=== PATIENT | female | born 2005 | race Caucasian/White ===

== ENCOUNTER 2025-01-19 09:09 | Emergency (ER) | payer OTHER, SELFPAY ==
--- NOTE | 2025-01-19 09:11 | ED.ABDPAIN ---
HPI - Abdominal Pain General Chief Complaint: Abdominal Pain Stated Complaint: Abdominal Pain Source: patient and RN notes reviewed Mode of arrival: ambulatory Limitations: no limitations History of Present Illness HPI narrative: Patient is a 19-year-old female who presents to the [facility] with complaints of right lower quadrant abdominal pain starting yesterday. Patient states that the pain started after she drank a frappacino from [employer]. However, the pain worsened today. She reports tenderness to the area. Notable tenderness upon palpation with rebound tenderness on exam. Patient reports accompanying nausea, but denies vomiting or diarrhea. Denies known fevers. Related Data Home Medications ?Medication ?Instructions ?Recorded ?Confirmed ?Last Taken ?Type norgestimate-ethinyl estradiol tablet 01/19/25 Unknown History 0.18mg/0.215mg/0.25mg-0.035mg(28)tablet spironolactone 50 mg tablet mg 01/19/25 Unknown History Allergies Allergy/AdvReac Type Severity Reaction Status Date / Time No Known Allergies Allergy Verified 01/19/25 09:25 Review of Systems Review of Systems: CONSTITUTIONAL: Denies fever, chills, or sweats. EYES: Denies visual changes, redness, or discharge. ENT: Denies otalgia and sore throat CARDIOVASCULAR: Denies chest pain, palpitations, or edema. RESPIRATORY: Denies cough or dyspnea. GASTROINTESTINAL: Reports abdominal pain and nausea, but denies vomiting or diarrhea. GENITOURINARY: Denies dysuria or hematuria. SKIN: Denies rash or itching. MUSCULOSKELETAL: Denies back pain, joint pain, or myalgia. NEUROLOGIC: Denies headache, numbness, or weakness. Pertinent positives per HPI. PMFSH Comments At the time of my signature, I reviewed and agree with the nursing past medical, surgical, social, and family history. There is no relevant family history pertinent to the patient complaint. Exam Narrative: GENERAL: This is a well-nourished, well-developed patient, in no apparent distress. HEAD: normocephalic, atraumatic. EYES: PERRL. Sclera clear/white. Vision is grossly intact. EARS: External ears normal, auditory canals clear and without drainage, TMs normal without perforation. Hearing grossly intact. NOSE: External nose normal with no obvious nasal discharge, nares without redness, no rhinorrhea. THROAT: Mucous membranes moist, posterior pharynx clear. NECK: Neck supple, non-tender without lymphadenopathy, masses or thyromegaly. CARDIOVASCULAR: Regular rate and rhythm without murmurs, gallops, or rubs. RESPIRATORY: Clear to auscultation. Breath sounds equal bilaterally. No wheezes, rales, or rhonchi. GASTROINTESTINAL: RLQ abdominal tenderness, rebound tenderness. Guarding. SKIN: warm, intact with no suspicious lesions or rash, good texture and turgor. NEURO: awake, alert, and oriented to person, place and time. There were no obvious focal neurologic abnormalities. Course Course Level of Care: Express Care Visit Vital Signs Vital signs: Vital Signs Temperature 97.5 F L 01/19/25 09:23 Pulse Rate 113 H 01/19/25 09:23 Respiratory Rate 16 01/19/25 09:23 Blood Pressure 124/85 01/19/25 09:23 Pulse Oximetry 100 01/19/25 09:23 Temperature 97.5 F L 01/19/25 09:23 Pulse Rate 113 H 01/19/25 09:23 Respiratory Rate 16 01/19/25 09:23 Blood Pressure 124/85 01/19/25 09:23 Pulse Oximetry 100 01/19/25 09:23 Reviewed Transfer Transfered to: [facility] Transportation: Other (private vehicle) Transfer rationale: Right lower quadrant abdominal pain with rebound tenderness Accepting physician: NELDA Gipson MDM - Abdominal Pain MDM Narrative Medical decision making narrative: Patient was directed to [facility] ED for further evaluation of her RLQ abdominal pain. On exam, there was rebound tenderness. Report given to NELDA at [facility]. NELDA Gipson accepted patient for transfer. Friend will drive patient via private vehicle to [facility] ED. Differential Diagnosis Differential diagnosis: Likely abdominal pain, acute appendicitis, calculus of kidney, constipation, gastroenteritis and other ( cholecystitis) Critical Care Time Critical Care Time Critical Care Time: No Discharge Plan Discharge Clinical Impression: Right lower quadrant abdominal pain Patient Disposition: Acute Care Hospital Condition: Stable Additional Instructions: Go directly to [facility] ED for evaluation. Patient Language: French Prescriptions: No Action norgestimate-ethinyl estradiol 0.18/0.215/0.25 mg-0.035mg (28) tablet spironolactone 50 mg tablet Follow-up/Referrals: UNKNOWN,DOCTOR [Non-Staff] Time of Disposition: :29
[2025-01-19 09:23] VITALS: BP 124/85; PULSE 113; RESP 16; TEMP 36.4; O2SAT 100
== END 2025-01-19 09:30 | disposition short-term general hospital (02) ==
PROVIDERS: Emergency Provider Nurse Practitioner
DX: R10.31 Right lower quadrant pain (principal)
CPT/HCPCS: 99212; G0463

== ENCOUNTER 2025-01-19 09:46 | Emergency (ER) | payer OTHER, SELFPAY ==
--- NOTE | ~2025-01-19 | CT_ITS ---
EXAMINATION: CT abdomen pelvis w con DATE: 01/19/2025 11:36 INDICATION: Right lower quadrant abdominal pain TECHNIQUE: Computed tomography (CT) of the abdomen and pelvis was performed with 100 mL Omnipaque-350 intravenous contrast. Automated exposure control and iterative reconstruction technique were employed. The dose-length product was 283.79 mGy-cm. COMPARISON: None FINDINGS: Lung bases are clear. Heart size is normal. No pericardial or pleural effusion. Liver, gallbladder, spleen, pancreas, bilateral adrenal glands and kidneys are normal. Bladder, anteverted uterus and bilateral adnexa are normal. Bowels including the appendix are normal. No free intraperitoneal gas or fluid. No pathologically enlarged abdominal or pelvic lymphadenopathy. Bones are unremarkable. IMPRESSION: 1. No acute intra-abdominal/pelvic process. Specifically the gallbladder and appendix are normal. Reviewed, dictated and finalized at location A. IMPRESSION: 1. No acute intra-abdominal/pelvic process. Specifically the gallbladder and ap pendix are normal.
--- NOTE | ~2025-01-19 | US_ITS ---
EXAMINATION: US pelvic complete INDICATION: Right lower quadrant pain Comparison:No prior studies for comparison. TECHNIQUE: Multiple transabdominal and endovaginal sonographic images of the pelvis performed. FINDINGS: The uterus measures 7.3 x 2 x 4.4 cm. The endometrial complex measures 3 mm. The right ovary measures 3.1 x 2.1 x 3.1 cm and the left ovary measures 3 x 1.6 x 1.8 cm. There are small follicles in each ovary. Normal doppler signal in both ovaries. There is no free fluid in the pelvis. There are no abnormal masses seen on either side. Incidental note is made of a hypoechoic mass midline lower abdomen wall measuring 7.9 x 3.2 x 1.3 cm. There is parallel orientation, internal vascularity and no significant posterior features. IMPRESSION: 1. Unremarkable pelvic ultrasound. 2: Oval hypoechoic soft tissue mass midline lower abdomen measuring 7.9 x 3.2 x 1.3 cm. Differential diagnosis includes desmoid type fibromatosis, abdominal wall endometriosis, chronic hematoma, benign lipoma and less likely malignant masses. Consider correlation with MRI pelvis with contrast to cover the area of abnormality. Consider image guided core biopsy. Reviewed, dictated and finalized at location O. IMPRESSION: 1. Unremarkable pelvic ultrasound. 2: Oval hypoechoic soft tissue mass midline lower abdomen measuring 7.9 x 3.2 x 1.3 cm. Differential diagnosis includes desmoid type fibromatosis, abdominal w all endometriosis, chronic hematoma, benign lipoma and less likely malignant ma sses. Consider correlation with MRI pelvis with contrast to cover the area of a bnormality. Consider image guided core biopsy.
[2025-01-19 10:01] VITALS: BP 112/70; PULSE 86; RESP 16; TEMP 36.6; O2SAT 100
[2025-01-19 10:29] LABS: Hematocrit 44.2 % (37.0-47.0); Hemoglobin 15.0 g/dL (12.0-15.0); Immature Granulocyte Percent A 0.3 % (0-0.5); Lymphocytes Absolute Auto 1.63 K/mm3 (0.9-3.2); Mean Corpuscular HGB Conc 33.9 g/dl (32-36); Mean Corpuscular Hemoglobin 29.8 pg (26-34); Mean Corpuscular Volume 87.7 fl (80-100); Nucleated Red Blood Cells Absolute Auto 0.000 K/mm3 (0.0-0.012); Nucleated Red Blood Cells Perc 0.0 % (0.0-0.2); Platelet Count Result 314 k/mm3 (150-375); Red Blood Count 5.04 M/mm3 (4.2-5.4); White Blood Count 10.7 K/mm3 (4.5-10.0)
[2025-01-19 10:32] LABS: Add Urine Microscopic? YES; Appearance Urine Clear (Clear); Glucose Urine UA Negative (Negative); Leukocyte Esterase Ur Trace LEU/UL (Negative); Nitrate Urine Negative (Negative); Non Pathogenic Casts 0-2; Specific Grav Ur 1.026 (1.001-1.035)
[2025-01-19 10:46] LABS: Alanine Aminotransferase 22 U/L (6-35); Albumin Level 4.9 g/dL (3.5-5.1); Alkaline Phosphatase 61 U/L (38-126); Anion Gap 12 mmol/L (4-12); Aspartate Amino Transferase 44 U/L (14-36); Bilirubin,Total 1.6 mg/dL (0.2-1.3); Blood Urea Nitrogen 10 mg/dL (7-17); Calcium 9.9 mg/dL (8.4-10.2); Carbon Dioxide 24 mmol/L (22-30); Chloride 103 mmol/L (98-107); Estimated CRCL calculation 69 ml/min; Estimated Glomerular Filt Rate > 60; Glucose 107 mg/dL (65-110); Lipase 60 U/L (23-300); Potassium 4.2 mmol/L (3.4-5.0); Sodium 139 mmol/L (137-145); Total Protein 8.8 g/dL (6.3-8.2)
[2025-01-19 10:51] LABS: BEDSIDEPREGUCG Negative (Negative)
--- OUTSIDE RECORDS SUMMARY | 2025-01-19 10:57 | XMS_ITS | Clinical Summary ---
Author Organization [facility] [address] Address [address] [place] [address] Care Team Providers Care Medical Translator Name Role Phone Farhan Bunn MD Primary Care Provider [phone] Marcelo Johnston MD Unavailable [phone] Allergies No known active allergies Medications albuterol HFA (PROVENTIL HFA,VENTOLIN HFA,PROAIR HFA) 90 mcg/actuation inhaler Inhale 2 puffs every 6 (six) hours as needed for wheezing 1 each 6 02/13/2021 Active norgestimate-et hinyl estradioL (ORTHO TRI-CYCLEN) 0.18/0.215/0.25 mg-35 mcg (28) per tablet Take 1 tablet by mouth daily 09/25/2023 Active spironolactone (ALDACTONE) 100 mg tablet Take 1 tablet (100 mg total) by mouth daily Active Active Problems Problem Noted Date Diagnosed Date Chronic tonsillitis 11/12/2023 Assessment & Plan (05/16/2024 11:04 AM SWING MANAGER): She has a normal exam following her tonsillectomy. Uvula swelling has resolved. I told her that the pain will continue to improved where she should not have any. She can resume normal activities and diet. Follow up with me as needed. She had no questions. Assessment & Plan (11/12/2023 1:28 PM CDT): She complains of chronic problems with tonsil stones as well as low-grade sore throats. I think she would benefit from a tonsillectomy. I told her it has really about the only thing that will reliably get rid tonsil stones. I discussed the risks of tonsillectomy and adenoidectomy with the patient. There is risk of bleeding which can occur in approximately 2-3% of patients during the 1st 2 weeks of recovery. Some risk of permanent loss of taste sensation. Risk of anesthesia and airway complications also. She indicates that she probably would like to do this when she has on her [place] break from school. She had no questions. She is going to talk with her parents about this. They were encouraged to call if they have any questions. They call to schedule whenever they already. Mild intermittent asthma without complication Immunizations Immunization Administration Dates Next Due Influenza, Quadrivalent, Spl it, Intramuscular 12/31/2018 Influenza, Quadrivalent, Spl it, Preservative Free, Intramuscular 03/05/2020,12/31/2018,01/24/2018 Influenza, Trivalent, IM (MDV) 03/02/2021,2016 Influenza, Trivalent, Preser vative Free, Intramuscular 01/27/2016 Influenza, Unspecified 03/05/2020 Surgical History Surgery Date Site/Laterality Comments ORAL SURGERY 11/10/2018 - 12/10/2018 WISDOM TOOTH EXTRACTION 07/12/2023 - 08/11/2023 TONSILLECTOMY 04/20/2024 Bilateral BILATERAL TONSILLECTOMY Medical History Medical History Date Comments Asthma Tonsillitis Tonsil stone Family History Medical History Relation Name Comments Coronary artery disease Father No Known Problems Mother No Known Problems Sister Relation Name Status Comments Father Alive Mother Alive Sister Alive Social History Tobacco Use Types Packs/Day Years Used Date Smoking Tobacco: Never Smokeless Tobacco: Never Tobacco Cessation:Counseling Given: Not Answered Alcohol Use Standard Drinks/Week Comments Never 0 (1 standard drink = 0.6 oz pur e alcohol) AUDIT-C Answer Date Recorded Q1: How often do you have a drink containing alc ohol? Monthly or less 04/20/2024 Q2: How many drinks containi ng alcohol do you have on a typical day when you are drinking? 1 or 2 04/20/2024 Q3: How often do you have si x or more drinks on one occasion? Never 04/20/2024 PHQ-2 Answer Date Recorded PHQ-2 Total Score (If total score is 3 or more points, staff should administer the PHQ-9) 0 10/18/2021 Personal Safety Answer Date Recorded Have you ever been in or are you currently in a harmful physical or emotional relationship or is someone making you feel afraid or unsafe? Denies 04/20/2024 Comments No Sex and Gender Information Value Date Recorded Sex Assigned at Not on file Legal Sex Female 7:45 PM SWING MANAGER Gender Identity Not on file Sexual Orientation Not on file Obstetrics History Last Filed Vital Signs Vital Sign Reading Time Taken Comments Blood Pressure 110/69 04/20/2024 5:00 PM SWING MANAGER Pulse 87 04/20/2024 5:00 PM SWING MANAGER Temperature 36.7 C (98.1 F) 04/20/2024 4:25 PM SWING MANAGER Respiratory Rate 18 05/14/2024 9:37 AM SWING MANAGER Oxygen Saturation 97% 04/20/2024 5:00 PM SWING MANAGER Inhaled Oxygen Concentration - - Weight 65.8 kg (145 lb) 05/14/2024 9:37 AM SWING MANAGER Height 167.6 cm (5' 6) 05/14/2024 9:37 AM SWING MANAGER Body Mass Index 23.4 05/14/2024 9:37 AM SWING MANAGER Plan of Treatment Health Maintenance Due Date Last Done Comments Hepatitis C Screening 2004 Pneumococcal vaccine <65 (1 of 1 - PPSV23, PCV20, or PCV21) 2010 01/04/2006, 06/22/2005, 04/27/2005, Additional history exists DTaP/Tdap/Td Vaccine (6 - Tdap) 12/22/2015 12/22/2008, 08/24/2006, 06/28/2006, Additional history exists HPV Vaccines (3 - 2-dose series) 07/05/2018 02/08/20 18, 01/02/2018 Meningococcal B Vaccine (1 o f 2 - Standard) 2020 Depression Screening 10/18/2022 10/18/2021, 11/19/19 20 Regular Well Visit/Exam 18-64 2022 Influenza Vaccine (#1) 2025 3, 03/02/2021, 03/05/2020, Additional history exists Hepatitis B Screening Completed 12/27/2006 , 06/22/2005, 04/27/2005, Additional history exists Varicella Vaccines Completed 12/22/2008, 04/12/2006 Meningococcal Vaccine Completed 11/30/2022, [address] [place] [id number] [facility] [id number] [facility] [id number] Care Teams Medical Translator Relationship Specialty Start Date End Date Farhan Bunn MD PCP - General Family Medicine 10/10/23 Marcelo Johnston MD [address] [place] [address] Consulting Physician Otolaryngology 04/20/24
[2025-01-19] MEDS: ONDANSETRON INJ 4 MG/2 ML VIAL IV PUSH (11:15)
[2025-01-19] MEDS: ACETAMINOPHEN 500 MG TABLET 1000 MG PO (11:16)
[2025-01-19] MEDS: SODIUM CHLORIDE 0.9% IV 1,000 ML 999 ML IV CONT (11:18)
--- NOTE | 2025-01-19 11:39 | ED_ITS ---
HPI - Abdominal Pain General Chief Complaint: Abdominal Pain Stated Complaint: abd pain Time Seen by Provider: 01/19/25 10:11 Source: patient Mode of arrival: ambulatory Limitations: no limitations History of Present Illness HPI narrative: Patient is an 17 year report right lower quadrant abdominal pain. Patient reports having pain throughout her right lower abdomen since around 4:00 p.m. yesterday. Pain has continued to worsen since then. Has not taken anything for pain. Pain worse with movement. Reports nausea, denies vomiting, fevers, diarrhea, constipation, urinary complaints. Denies history of previous ovarian cyst. Sent here from urgent care today. Related Data Home Medications ?Medication ?Instructions ?Recorded ?Confirmed ?Last Taken ?Type norgestimate-ethinyl estradiol tablet 01/19/25 Unknow n History 0.18mg/0.215mg/0.25mg-0.035mg(28)tablet spironolactone 50 mg tablet mg 01/19/25 Unknown Histo ry Allergies Allergy/AdvReac Type Severity Reaction Status Date / Time No Known Allergies Allergy Verified 01/19/25 09:25 Review of Systems 2 Review of Systems: All systems reviewed & are unremarkable except as noted in HPI. All systems reviewed & are unremarkable except as noted in HPI and below Exam 2 Narrative: GENERAL: Well appearing, well-nourished, non-toxic, in no acute distress. HEAD: Normocephalic, atraumatic. RESPIRATORY: Airway patent, respirations nonlabored. Clear to auscultation bilaterally, no rales, rhonchi, wheezing. CARDIOVASCULAR: Regular rate and rhythm without murmurs, rubs, or gallops. ABDOMINAL: Soft, mild diffuse tenderness throughout abdomen, worst in right lower quadrant, nondistended. Normoactive BS. MUSCULOSKELETAL: Moves all extremities. No gross deformities. SKIN: Warm, dry, normal color. NEURO: A&O X3. Speech clear. Cranial nerves II-XII grossly intact. Steady gait. No ataxic movements. PSYCHIATRIC: Appropriate mood and affect. Normal interaction. Course Vital Signs Vital signs: Vital Signs Temperature 97.8 F 01/19/25 10:01 Pulse Rate 86 01/19/25 10:01 Respiratory Rate 16 01/19/25 10:01 Blood Pressure 112/70 01/19/25 10:01 Pulse Oximetry 100 01/19/25 10:01 Oxygen Delivery Room Air 01/19/25 10:01 Temperature 97.8 F 01/19/25 10:01 Pulse Rate 86 01/19/25 10:01 Respiratory Rate 16 01/19/25 10:01 Blood Pressure 112/70 01/19/25 10:01 Pulse Oximetry 100 01/19/25 10:01 Oxygen Delivery Room Air 01/19/25 10:01 MDM - Abdominal Pain MDM Narrative Medical decision making narrative: Patient presented to ED with right lower quadrant abdominal pain that began yesterday afternoon. Sent from urgent care. Vital signs are stable upon arrival. Patient is afebrile here. Cbc with blood cell count of 10.7. CMP fairly unremarkable. Creatinine 1.08. No records to compare to. Given fluids. Total bilirubin mildly elevated to 1.6. Otherwise normal LFTs and lipase. Patient without significant focal right upper quadrant tenderness on exam. UA without signs of infection. Urine is negative. CT scan of abdomen/pelvis was obtained and unremarkable. Specifically, the appendix and gallbladder were normal. Pelvic ultrasound was obtained and without abnormality to adnexal regions. No evidence of torsion. Does show soft tissue abnormality/mass midline lower abdomen, wide differential. Recommend MRI/possible bx. Discussed these findings extensively with patient and family. Advised close follow-up with PCP and possible OBGYN for further eval and workup of this. Overall workup is otherwise reassuring. No specific etiology to pain. Patient is feeling improved after Tylenol. Discussed possibility constipation, gas pains. Feel she is safe for discharge home at this time. Advised to monitor symptoms closely, strict return precautions. She is in agreement with plan, feels comfortable going home. Discharged in stable condition. Medical Records Attestation: I reviewed the patient's medical records. Lab Data Attestation: I reviewed the patient's lab results. 01/19/25 10:21 01/19/25 10:21 Labs: Lab Results 01/19/25 01/19/25 Range/Units 10:21 10:49 WBC 10.7 H (4.5-10.0) K/mm3 RBC 5.04 (4.2-5.4) M/mm3 Hgb 15.0 (12.0-15.0) g/dL Hct 44.2 (37.0-47.0) % MCV 87.7 (80-100) fl MCH 29.8 (26-34) pg MCHC 33.9 (32-36) g/dl RDW 12.4 (11.5-14.5) % Plt Count 314 (150-375) k/mm3 MPV 10.2 (7.4-10.4) fl Immature Gran % (Auto) 0.3 (0-0.5) % Neut % (Auto) 78.0 H (45.5-73.1) % Lymph % (Auto) 15.2 L (18.3-44.2) % [place] % (Auto) 5.4 (2.6-8.5) % Eos % (Auto) 0.7 (0-4.4) % Baso % (Auto) 0.4 (0.2-1.2) % Lymph # (Auto) 1.63 (0.9-3.2) K/mm3 [place] # (Auto) 0.6 (0.1-0.6) K/mm3 Eos # (Auto) 0.1 (0-0.3) K/mm3 Baso # (Auto) 0.0 (0.0-0.1) K/mm3 Abs Immat Gran (auto) 0.03 (0.00-0.031) K/mm3 Absolute Neuts (auto) 8.4 H (1.3-6.7) K/mm3 Absolute Nucleated RBC 0.000 (0.0-0.012) K/mm3 Nucleated RBC % 0.0 (0.0-0.2) % Sodium 139 (137-145) mmol/L Potassium 4.2 (3.4-5.0) mmol/L Chloride 103 (98-107) mmol/L Carbon Dioxide 24 (22-30) mmol/L Anion Gap 12 (4-12) mmol/L BUN 10 (7-17) mg/dL Creatinine 1.08 H (0.7-1.0) mg/dL Estim Creat Clear Calc 69 ml/min Estimated GFR > 60 (59 - ) Glucose 107 (65-110) mg/dL Calcium 9.9 (8.4-10.2) mg/dL Total Bilirubin 1.6 H (0.2-1.3) mg/dL AST 44 H (14-36) U/L ALT 22 (6-35) U/L Alkaline Phosphatase 61 (38-126) U/L Total Protein 8.8 H (6.3-8.2) g/dL Albumin 4.9 (3.5-5.1) g/dL Lipase 60 (23-300) U/L Urine Color Yellow (Yellow) Urine Appearance Clear (Clear) Urine pH 5.5 (5.0-9.0) Ur Specific [place] 1.026 (1.001-1.035) Urine Protein Negative (Negative) mg/dL Urine Glucose (UA) Negative (Negative) mg/dL Urine Ketones Trace H (Negative) mg/dL Ur Blood (Man) Negative (Negative) Urine Nitrate Negative (Negative) Urine Bilirubin Negative (Negative) Urine Urobilinogen 0.2 (<2.0) mg/dL Leukocyte Esterase Rfl Trace H (Negative) DHRUV/UL Urine RBC 0-2 (0-2) /hpf Urine WBC 0-5 (0-3) /hpf Ur Squamous Epith Cells None seen (Few) /hpf Urine Bacteria None seen /hpf Urine Casts 0-2 POC Urine HCG, Qual Negative (Negative) Imaging Data Attestation: I personally reviewed and interpreted this imaging study as follows: Radiologist's impression: ITS Impressions Abdomen/Pelvis CT 01/19/25 12:03 IMPRESSION: 1. No acute intra-abdominal/pelvic process. Specifically the gallbladder and appendix are normal. Pelvis Ultrasound 01/19/25 13:24 IMPRESSION: 1. Unremarkable pelvic ultrasound. 2: Oval hypoechoic soft tissue mass midline lower abdomen measuring 7.9 x 3.2 x 1.3 cm. Differential diagnosis includes desmoid type fibromatosis, abdominal wall endometriosis, chronic hematoma, benign lipoma and less likely malignant masses. Consider correlation with MRI pelvis with contrast to cover the area of abnormality. Consider image guided core biopsy. Discharge Plan Discharge Clinical Impression: Right lower quadrant abdominal pain, Soft tissue lesion of pelvic region Patient Disposition: Home Condition: Stable Instructions: Antibiotic Form, Abdominal Pain (ED) Additional Instructions: Follow-up with your primary care doctor for further evaluation and further outpatient imaging of soft tissue abnormality in lower abdomen. Continue Tylenol/ibuprofen, heating pad as needed for pain. Recommended rest, stay well hydrated. Return to the ED if you experience worsening or severe pain, unable to keep down food or drink, fevers, abnormal vaginal bleeding, difficulty urinating, or any other symptoms of concern. Patient Language: Portuguese Prescriptions: No Action norgestimate-ethinyl estradiol 0.18/0.215/0.25 mg-0.035mg (28) tablet spironolactone 50 mg tablet Follow-up/Referrals: Xiomy Munoz MD [Physician, RESOURCES REPRESENTATIVE] Referral Note: OBGYN UNKNOWN,DOCTOR [Primary Care Provider] Time of Disposition: 14:43
--- OUTSIDE RECORDS SUMMARY | 2025-01-19 11:52 | XMS_ITS | Clinical Summary ---
Author Organization [facility] [address] Address [address] [place] [address] Care Team Providers Care Senior Bi Developer Name Role Phone Farhan Bunn MD Primary Care Provider [phone] Marcelo Johnston MD Unavailable [phone] Allergies No known active allergies Medications albuterol [...] 11/12/2023 Assessment & Plan (05/16/2024 11:04 AM ROOF FIXER): She has a normal exam following her [...] on file Legal Sex Female 7:45 PM ROOF FIXER Gender Identity Not on file Sexual Orientation Not on file Obstetrics History Last Filed Vital Signs Vital Sign Reading Time Taken Comments Blood Pressure 110/69 04/20/2024 5:00 PM ROOF FIXER Pulse 87 04/20/2024 5:00 PM ROOF FIXER Temperature 36.7 C (98.1 F) 04/20/2024 4:25 PM ROOF FIXER Respiratory Rate 18 05/14/2024 9:37 AM ROOF FIXER Oxygen Saturation 97% 04/20/2024 5:00 PM ROOF FIXER Inhaled Oxygen Concentration - - Weight 65.8 kg (145 lb) 05/14/2024 9:37 AM ROOF FIXER Height 167.6 cm (5' 6) 05/14/2024 9:37 AM ROOF FIXER Body Mass Index 23.4 05/14/2024 9:37 AM ROOF FIXER Plan of Treatment Health Maintenance Due Date [...] 04/12/2006 Meningococcal Vaccine Completed 11/30/2022, [address] [place] [id number] [facility] [id number] [facility] [id number] Care Teams Senior Bi Developer Relationship Specialty Start Date End Date Farhan Bunn MD PCP - General Family Medicine 10/10/23 Marcelo Johnston MD [address] [place] [address] Consulting Physician Otolaryngology 04/20/24
== END 2025-01-19 15:08 | disposition home or self-care (01) ==
PROVIDERS: Emergency Medicine; Emergency Provider Physician Assistant
DX: R10.31 Right lower quadrant pain (principal); R19.09 Other intra-abdominal and pelvic swelling, mass and lump
CPT/HCPCS: 36415; 74177; 76856; 80053; 81001; 81025; 83690; 85025; 96361; 96374; 99284; A9270; J2405; J7030; Q9967